=== PATIENT | female | born 1990 | race Caucasian/White ===

== ENCOUNTER 2019-01-24 | Emergency (ER) | payer SELFPAY | END 2019-01-24 22:50 | disposition short-term general hospital (02) | CPT/HCPCS: 36415; 71046; 80048; 80053; 81001; 82150; 82550; 82553; 83605; 83690; 83735; 83880; 84443; 84484; 84702; 84703; 85025; 85379; 85610; 85651; 85730; 87040; 93005; J3475; J3480 ==